=== PATIENT | female | born 1990 | race Caucasian/White ===

== ENCOUNTER 2023-08-04 15:05 | Emergency (ER) | payer OTHER, SELFPAY ==
--- NOTE | 2023-08-04 15:08 | ED_ITS ---
HPI - General Adult General Chief complaint: Back Pain/Injury Stated complaint: back pain Time Seen by Provider: 08/04/23 15:14 Source: patient Mode of arrival: ambulatory Limitations: no limitations History of Present Illness HPI narrative: 32yo female with history of Von Willebrands disease, T12 compression fracture (1 yr ago secondary to trauma treated with brace) here with complaints of lower back pain with radiation down the right leg since Friday with no known injury or trauma. Describes pain as burning. No numbness,tingling in the legs. NO numbness in the groin. No bowel or bladder incontinence. No fevers/chills. Unrelieved with Tylenol, heat at home Related Data Previous Rx's Medication Instructions Recorded cyclobenzaprine 10 mg tablet 10 mg PO TID PRN muscle spasm #15 08/04/23 tabs lidocaine 5 % topical patch 1 patch topical DAILY #15 ea 08/04/23 (Lidoderm) oxycodone 5 mg tablet 5 mg PO Q8H PRN pain #9 tabs 08/04/23 Allergies Allergy/AdvReac Type Severity Reaction Status Date / Time NSAIDS (Non-Steroidal AdvReac Unknown Verified 08/04/23 15:08 Anti-Inflamma Review of Systems Review of Systems: Yes all other systems are reviewed and are negative Constitutional: Constitutional: Reports no additional constitutional complaints, Denies body ache(s), Denies chills, Denies fever(s), Denies headache(s) and Denies weakness Eyes: Eyes: Reports no additional eye complaints and Denies change in vision ENT: Reports system reviewed and no additional complaints, except as documented, Denies dizziness, Denies headache(s), Denies nasal congestion, Denies nasal discharge and Denies neck pain Cardiovascular: Cardiovascular: Reports no additional cardiovascular complaints, Denies chest pain, Denies leg edema and Denies dyspnea Respiratory: Respiratory: Reports no additional respiratory complaints, Denies cough and Denies dyspnea Gastrointestinal: Gastrointestinal: Reports no additional gastrointestinal complaints, Denies abdominal pain, Denies diarrhea, Denies nausea and Denies vomiting Genitourinary: Genitourinary: Reports no additional female genitourinary complaints and Denies urinary incontinence Musculoskeletal: Musculoskeletal: Reports no additional musculoskeletal complaints, Reports back pain, Denies arthralgias, Denies joint swelling, Denies neck pain, Denies numbness, Reports radiating pain into limb and Denies tingling Integumentary/Breasts: Skin/Breast: Reports system reviewed and no additional complaints, except as docu and Denies rash Neurologic: Reports system reviewed and no additional complaints, except as documented, Denies Abnormal speech present, Denies dizziness, Denies headache(s), Denies numbness, Denies tingling and Denies weakness PMF Past Medical History Attestation statement: The following information was validated with the patient. Source: old records reviewed and nursing notes reviewed Social History Social History Advance Directives: No Advance Directives Information Provided: No Physical Exam ED Vital Signs: Vital Signs - 24 hr 08/04/23 15:09 Temperature 98.3 F Pulse Rate 100 Respiratory Rate 18 Blood Pressure 150/101 H BMI result Body Mass Index 21.1 Const General: cooperative, healthy appearing, comfortable and no acute distress Orientation/consciousness: patient oriented x3 Limitations: no limitations HENMT Head: Yes normal to inspection Ears: hearing grossly normal bilaterally General nose exam: Normal external nose present Face and sinus: Yes normal facial exam Mouth: Normal oral and palatal mucosa present Throat: Yes posterior oropharynx normal Eyes General: appearance normal, both eyes and all related structures Pupils: Equal, round and reactive pupils present Neck Neck: Yes normal visual inspection Chest Chest palpation & inspection: normal inspection of the chest Resp Effort & Inspection: normal respiratory effort Auscultation: clear to auscultation bilaterally Cardio Rate: regular rate Rhythm: regular rhythm Peripheral pulses: Peripheral pulses 2+ throughout GI Inspection: Yes normal to inspection Palpation (GI): Soft to palpation and nontender Auscultation: normal bowel sounds General: Yes no CVA tenderness Back/Spine/Pelvis Other: TTP to lumbar mid/lower spine with no step offs or deformities Worsened with b/l leg raise Back: no CVA tenderness Thoracic/Lumbar Spine: thoracic and lumbar spine normal to inspection Skin General skin exam: no rashes or lesions noted Neuro General: patient oriented x3, moves all extremities, no focal motor deficits and normal sensation to monofilament Cranial nerves: Yes Equal, round and reactive pupils present Cognition (Neuro): normal cognition Speech: No Abnormal speech present Motor exam (neuro): 5/5 motor strength present throughout Sensory Exam: Normal double simultaneous stimulation for sensation Deep tendon reflexes (DTR's): Right patellar reflex intensity grade: 2+ and Left patellar reflex intensity grade: 2+ Extrem General: Yes normal to inspection Course Course Course Narrative: RME performed by Cristy Peguero PA-C. Patient is a 32 year old assigned female at presenting to the emergency department with low back pain. Patient placed back in the waiting room pending room availability. Reevaluation(s) Reevaluation #1: 1700-continued pain. Re-medicated for pain Reevaluation #2: 1800-Pain is not resolved but improved. Patient feels comfortable being discharged home with oral medications. recommended she f/u outpatient with PCP for MRI. Reviewed worrisome signs/symptoms with patient and when to seek additional care. Comfortable with plan for discharge home. Medications Administered Discontinued Medications Generic Name Dose Route Start Last Admin Trade Name Freq PRN Reason Stop Dose Admin Acetaminophen 975 mg 08/04/23 15:26 08/04/23 15:45 Acetaminophen 325 Mg Tablet PO 08/04/23 15:27 Not Given ONCE ONE Cyclobenzaprine HCl 10 mg 08/04/23 15:26 08/04/23 15:37 Cyclobenzaprine Hcl 10 Mg Tablet PO 08/04/23 15:27 10 mg ONCE ONE Administration Lidocaine 1 patch 08/04/23 15:26 08/04/23 15:38 Lidocaine 4 % Patch Adh..Patch TRANSDERMA 08/04/23 15:27 1 patch ONCE ONE Administration Protocol Oxycodone HCl 5 mg 08/04/23 15:26 08/04/23 15:37 Oxycodone Hcl Immed Release 5 Mg Tablet PO 08/04/23 15:27 5 mg ONCE ONE Administration Oxycodone HCl 5 mg 08/04/23 16:43 08/04/23 17:10 Oxycodone Hcl Immed Release 5 Mg Tablet PO 08/04/23 16:44 5 mg ONCE ONE Administration Medical Decision Making Medical Decision Making MDM Narrative: 32yo female with history of Von Willebrands disease, T12 compression fracture (1 yr ago secondary to trauma treated with brace) here with complaints of lower back pain with radiation down the right leg since Friday with no known injury or trauma. Describes pain as burning. No numbness,tingling in the legs. NO numbness in the groin. No bowel or bladder incontinence. No fevers/chills. Unrelieved with Tylenol, heat at home Normal neuro exam with no red flag symptoms or neuro deficits. +PAIN on exam and limited ambulation d/t pain Will provide analgesia and re-assess Differential Diagnosis Differential Diagnoses: The differential diagnosis associated with the p resentation includes lumbar radiculopathy, herniated disc Low concern for fracture or bony abnormality with no reports of recent trauma or injury Low concern for cord compression cauda equine a with normal neuro exam with no focal deficits Low concern for epidural abscess with no history of immunocompromised state or IV drug abuse with normal neuro exam Low concern for AAA with gradual onset of symptoms Low concern for renal colic/pyelo with no urinary symptoms Admission/Observation Consideration of admission/observation: Escalation of care including admission/observation considered No neurological deficits or red flag symptoms to suggest need for emergent MRI, NSY consultation or transfer to tertiary care center Tests considered The following testing was considered but not selected: No neurological deficits or red flag symptoms to suggest need for emergent MRI Prescription Management I considered prescription management with: Pain Medication Discharge Plan Discharge Clinical Impression: Lumbar radiculopathy Patient Disposition: Home, Self-Care Instructions: Lumbar Radiculopathy (ED) Additional Instructions: Heat to the area gentle stretching no heavy lifting or bending Call PCP to schedule outpatient MRI. Return for incontinence of urine/stool, fever, numbness in the groin, weakness in the extremities Continue Tylenol Prescriptions: New cyclobenzaprine 10 mg tablet 10 mg PO TID PRN (Reason: muscle spasm) Qty: 15 0RF lidocaine [Lidoderm] 5 % adhesive patch,medicated 1 patch topical DAILY Qty: 15 0RF Rx Instructions: leave on most painful area for up to 12 hrs oxycodone 5 mg tablet 5 mg PO Q8H PRN (Reason: pain) Qty: 9 0RF Rx Instructions: Partial Fill upon patient request. Referrals: Physician,Unknown J [Primary Care Provider] - 5 days Stand Alone Forms: Work/School Release
[2023-08-04 15:09] VITALS: BP 150/101; PULSE 100; RESP 18; TEMP 36.8; BMI 21.1
[2023-08-04] MEDS: oxyCODONE HCl Immed Release 5 MG TABLET PO ×2 (15:37→17:10)
[2023-08-04] MEDS: Cyclobenzaprine HCl 10 MG TABLET PO (15:37)
[2023-08-04] MEDS: Lidocaine 4 % Patch ADH..PATCH 1 PATCH TRANSDERMA (15:38)
--- NOTE | 2023-08-04 15:40 | PC.NURSE ---
pt medicated per MAR
== END 2023-08-04 18:44 | disposition home or self-care (01) ==
PROVIDERS: Emergency Provider Emergency Medicine Emergency Medical Services
DX: M54.16 Radiculopathy, lumbar region (principal); M54.50 Low back pain, unspecified; D68.00 Von Willebrand disease, unspecified
CPT/HCPCS: 99283

== ENCOUNTER 2023-08-07 20:46 | Emergency (ER) | payer OTHER, SELFPAY ==
--- NOTE | ~2023-08-07 | CT_ITS ---
EXAMINATION: CT LUMBAR SPINE WITHOUT CONTRAST CLINICAL INFORMATION: Low back pain radiating in the right leg COMPARISON: None available. TECHNIQUE: Axial thin section CT slices were obtained through the the lumbar spine. Sagittal and coronal reconstructions were also produced and reviewed. This CT examination was performed using dose optimization techniques as appropriate, variously including the following: *Automated exposure control *Adjustment of mA and/or kV according to patient size (this includes techniques or standardized protocols for targeted exams where dose is matched to indication/reason for exam; i.e. extremities or head) *Use of iterative reconstruction technique DLP; 377 mGy-cm FINDINGS: LUMBAR SPINE: Representative [employer]: There is mild dextroscoliosis of lumbar spine and straightening of lumbar lordosis. There is compression deformity of T12 vertebral body. There is compression deformity of superior endplate of T12 vertebral body with approximately 50% loss of height of T12 vertebral body. The vertebral bodies are normal in contour and alignment. No gross lytic or blastic lesions are identified. No fractures or subluxations are identified. No gross epidural hematoma is seen. The intervertebral discs are generally normal in height. No gross disc protrusions are noted. The central canal is patent. T12-L1: There is no significant disc bulge or protrusion. The facet joints are normal. There is no central canal, lateral recess, or neural foraminal stenosis. L1-L2: There is no significant disc bulge or protrusion. The facet joints are normal. There is no central canal, lateral recess, or neural foraminal stenosis. L2-L3: There is no significant disc bulge or protrusion. The facet joints are normal. There is no central canal, lateral recess, or neural foraminal stenosis. L3-L4: There is no significant disc bulge or protrusion. The facet joints are normal. There is no central canal, lateral recess, or neural foraminal stenosis. L4-L5: There is no significant disc bulge or protrusion. The facet joints are normal. There is no central canal, lateral recess, or neural foraminal stenosis. L5-S1:There is no significant disc bulge or protrusion. The facet joints are normal. There is no central canal, lateral recess, or neural foraminal stenosis. The paraspinal soft tissues are unremarkable. CT/CT lumbar spine wo IV con IMPRESSION: 1. Compression deformity of T12 vertebral body, of uncertain chronicity. 2. Mild dextroscoliosis of lumbar spine and straightening of lumbar lordosis.
[2023-08-07 21:13] VITALS: BP 138/99; PULSE 116; RESP 20; TEMP 37; O2SAT 98; BMI 21.1
[2023-08-08 02:47] VITALS: BP 134/98; PULSE 89; RESP 16; O2SAT 98
[2023-08-08 05:16] VITALS: BP 149/107; PULSE 93; RESP 16; TEMP 36.6; O2SAT 98
--- NOTE | 2023-08-08 06:09 | PC.NURSE ---
Pt sitting at edge of stretcher unable to get comfortable. Reports pain to lower back radiating to right leg worsens with movement. Pt unable to right leg up. Pt waiting for provider, Pt aware of plan.
--- NOTE | 2023-08-08 06:45 | ED.BACK ---
HPI - Back Pain/Injury General Chief Complaint: Back Pain/Injury Stated Complaint: lower back pain Time Seen by Provider: 08/08/23 06:24 Source: patient Mode of arrival: ambulatory Limitations: no limitations History of Present Illness HPI Narrative: 32yo female with history of Von Willebrands disease, T12 compression fracture (1 yr ago secondary to trauma treated with brace) here with complaints of lower back pain with radiation down the right leg since 07/30/2023 with no known injury or trauma. 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 She states that last Friday her pain started in the morning. The pain came on gradually. She states that the pain is located across her lower back and she describes as a shooting/stabbing pain which is 6/10 at rest and 9/10 with movement. She states that the pain radiates down her right leg in her right leg with a tingling/numbness sensation. The patient denied fever, chills, nausea, vomiting, diarrhea, frequency, urgency, dysuria. She has not lost control of her bowel or bladder. She was seen in the emergency department on 08/04/2023, 4 days prior to evaluation. She was diagnosed with lumbar radiculopathy and started on cyclobenzaprine, lidocaine patches and oxycodone. She states she has taken the cyclobenzaprine with some improvement but is not taken the oxycodone. Related Data Previous Rx's Medication Instructions Recorded cyclobenzaprine 10 mg tablet 10 mg PO TID PRN muscle spasm #15 08/04/23 tabs lidocaine 5 % topical patch 1 patch topical DAILY #15 ea 08/04/23 (Lidoderm) oxycodone 5 mg tablet 5 mg PO Q8H PRN pain #9 tabs 08/04/23 morphine 15 mg immediate release 15 mg PO Q6H PRN pain #14 tabs 08/08/23 tablet prednisone 20 mg tablet 60 mg (3 x 20 mg) PO DAILY 7 days 08/08/23 #21 tabs Allergies Allergy/AdvReac Type Severity Reaction Status Date / Time NSAIDS (Non-Steroidal AdvReac Unknown Verified 08/07/23 21:18 Anti-Inflamma Review of Systems Review of Systems: Yes all other systems are reviewed and are negative [facility] Past Medical History [facility] Narrative: Past medical history: Von Willebrand's disease, T12 fracture secondary to fall 1 year prior. 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 Social History Social History Alcohol intake: current Smoked in Last 30 Days: No Use of substances other than those prescribed or required for medical reasons: No Advance Directives: No Advance Directives Information Provided: Yes Patient : No Physical Exam Vital Signs: Vital Signs: Last Vital Signs Temp 97.9 F 08/08/23 05:16 Pulse 93 08/08/23 05:16 Resp 18 08/08/23 07:10 BP 149/107 H 08/08/23 05:16 Pulse Ox 98 08/08/23 05:16 O2 Del Method Room Air 08/08/23 05:16 BMI result Body Mass Index 21.1 Medications Administered Discontinued Medications Generic Name Dose Route Start Last Admin Trade Name Freq PRN Reason Stop Dose Admin Sodium Chloride 1,000 mls @ 999 mls/hr 08/08/23 06:45 08/08/23 08:37 Ns IV 08/08/23 07:45 Infused .Q1H1M STA Infusion Ketorolac Tromethamine 15 mg 08/08/23 06:45 08/08/23 07:07 Ketorolac Tromethamine 15 Mg/Ml Vial IVPUSH 08/08/23 06:46 15 mg ONCE STA Administration Morphine Sulfate 4 mg 08/08/23 06:45 08/08/23 07:10 Morphine Sulfate 4 Mg/Ml Cartridge IVPUSH 08/08/23 06:46 4 mg ONCE STA Administration Protocol Ondansetron HCl 4 mg 08/08/23 06:45 08/08/23 07:05 Ondansetron Hcl 4 Mg/2 Ml Vial IVPUSH 08/08/23 06:46 4 mg ONCE ONE Administration Medical Decision Making Medical Decision Making [facility] Narrative: 32-year-old female with history of von Willebrand's disease and T12 fracture 1 year prior secondary to fall who presents emergency department for evaluation of 9 days of lower back pain with pain radiating down her right leg who was seen in the emergency department on 08/04/2023 who had some improvement with cyclobenzaprine but now her pain is worse. Patient's lower back pain is 6/10 at rest and 9/10 with movement with pain radiating down her right leg then numb sensation in her right leg. Patient states that she is having difficulty walking secondary to her pain. She denied fever or chills, loss of bowel or bladder control. Patient's exam did reveal tenderness palpation over the L4-L5 vertebrae and lumbar sacral area. She has positive bilateral straight leg raise right being greater than left. There is no diminished light touch in her lower extremities, she has normal reflexes. Patient's strength is diminished on the right compared to left that this may be secondary to pain. Following evaluation was ordered: CBC, CMP, ESR, CRP, PT/INR, PTT, CPK, quantitative beta-hCG, urinalysis, CT lumbar spine without contrast Patient was treated with morphine 4 mg IV, Zofran 4 mg IV, Toradol 15 mg IV and normal saline x1 L 0837: Patient's laboratory evaluation was unremarkable with normal ESR and CRP. Quantitative test was negative. MRIs not obtainable at this time therefore I ordered a CT scan of the lumbar spine to evaluate for compression fractures versus disc disease At the end of my shift, patient's care was turned over to my colleague, Dr. Tori Fernandez Differential Diagnosis Differential Diagnoses: The differential diagnosis associated with the presentation includes Differential diagnosis includes but is not limited to musculoskeletal injury, sciatica, disc disease, infectious process Admission/Observation Consideration of admission/observation: Escalation of care including admission/observation considered Lab Data MDM Lab Attestation statement: I reviewed the patient's lab results. My independent interpretation patient's laboratory evaluation is as follows: CBC and CMP were normal. Quantitative beta hCG was below detectable limits-she is not . Patient's ESR and CRP were normal. 08/08/23 06:58 08/08/23 06:58 Labs: Lab Results 08/08/23 Range/Units 06:58 WBC 5.5 (4.8-10.8) X10*3/uL RBC 3.86 L (4.20-5.50) X10*6/uL Hgb 12.8 (12.0-16.0) g/dl Hct 36.9 L (37.0-47.0) % MCV 95.6 (80.0-98.0) fL MCH 33.2 H (27.0-33.0) pg MCHC 34.7 (31.0-35.0) g/dl RDW 11.8 (11.0-16.0) % Plt Count 215 (160-400) X10*3/uL MPV 9.4 (9.4-12.3) fL Immature Gran % (Auto) 0.2 (0.0-0.4) % Neut % (Auto) 62.1 (45-73) % Lymph % (Auto) 23.4 (20-40) % [place] % (Auto) 10.6 (2-11) % Eos % (Auto) 2.6 (0-4) % Baso % (Auto) 1.1 (0-2) % Lymph # (Auto) 1.3 (1.2-4.9) X10*3/uL [place] # (Auto) 0.6 (0.1-1.2) X10*3/uL Eos # (Auto) 0.1 (0.0-0.4) X10*3/uL Baso # (Auto) 0.1 (0.0-0.2) X10*3/uL Abs Immat Gran (auto) 0.01 (0.00-0.03) X10*3/uL Absolute Neuts (auto) 3.4 (2.0-8.3) x10*3/uL Absolute Nucleated RBC 0.000 (0.0-0.012) X10*3/uL Nucleated RBC % (auto) 0.0 (0.0-0.2) /100WBC ESR 7 (0-20) MM/HR PT 11.0 L (11.1-13.3) SEC INR 0.9 (0.9-1.1) APTT 27.3 (26.0-36.4) SEC Sodium 139 (135-145) mmol/L Potassium 4.0 (3.3-5.1) mmol/L Chloride 108 (96-108) mmol/L Carbon Dioxide 22 (22-29) mmol/L Anion Gap 13 (12-20) BUN 10 (9-16) mg/dL Creatinine 0.69 (0.5-1.4) mg/dL Estim Creat Clear Calc 115.2 Estimated GFR > 60 Random Glucose 86 (60-115) mg/dL Calcium 9.3 (8.4-10.2) mg/dL Total Bilirubin 0.4 (0.0-1.0) mg/dL AST 15 (5-31) U/L ALT 6 (0-31) U/L Alkaline Phosphatase 41 (39-117) U/L Total Creatine Kinase 65 (26-140) U/L C-Reactive Protein 0.23 (< or = 0.50) mg/dL Total Protein 7.4 (6.5-8.0) g/dL Albumin 4.0 (3.5-5.0) g/dL Beta HCG, Quant < 2 mIU/mL Discharge Plan Discharge Clinical Impression: Lumbar back pain with radiculopathy affecting right lower extremity Patient Disposition: Still a Patient Instructions: Lumbar Radiculopathy (ED) Additional Instructions: Your blood work was normal. The CT scan results were given to you by Dr. Fernandez Take prednisone 20 mg pills, 3 pills once a day for 7 days. While you are taking prednisone, do not take any NSAIDs (Motrin, Advil, ibuprofen, Aleve, naproxen). Take Tylenol (acetaminophen) 2 pills every 6 hours as needed for pain. For pain not relieved by prednisone or Tylenol take morphine 15 mg pills, 1 pill every 6 hours as needed for pain. This medication will make you sleepy, do not drive or work while taking this medication. Morphine is a narcotic medication and can be addicting. If you are concerned about addiction you can ask the pharmacist for less pills or do not get this prescription filled. Continue taking cyclobenzaprine as prescribed. Follow-up with your doctor in 2 days. Please return to the emergency department if your symptoms get worse or if you develop any symptoms that are concerning to you. Please see the work note Prescriptions: New prednisone 20 mg tablet 60 mg PO DAILY 7 Days Qty: 21 0RF morphine 15 mg tablet 15 mg PO Q6H PRN (Reason: pain) Qty: 14 0RF Rx Instructions: Patient may request partial fill; Partial Fill upon patient request. No Action cyclobenzaprine 10 mg tablet 10 mg PO TID PRN (Reason: muscle spasm) Qty: 15 0RF lidocaine [Lidoderm] 5 % adhesive patch,medicated 1 patch topical DAILY Qty: 15 0RF Rx Instructions: leave on most painful area for up to 12 hrs oxycodone 5 mg tablet 5 mg PO Q8H PRN (Reason: pain) Qty: 9 0RF Rx Instructions: Partial Fill upon patient request. Stand Alone Forms: Work/School Release
[2023-08-08] MEDS: ondansetron HCL 4 MG/2 ML VIAL IVPUSH (07:05)
[2023-08-08 07:06] LABS: MANUAL DIFF FLAG NO
[2023-08-08 07:07] LABS: Basophils Absolute Auto 0.1 X10*3/uL (0.0-0.2); Basophils Percent Auto 1.1 % (0-2); Eosinophils Absolute Auto 0.1 X10*3/uL (0.0-0.4); Eosinophils Percent Auto 2.6 % (0-4); Hematocrit 36.9 % (37.0-47.0); Hemoglobin 12.8 g/dl (12.0-16.0); Imm Gran Abs Auto 0.01 X10*3/uL (0.00-0.03); Imm Gran Pct Auto 0.2 % (0.0-0.4); Lymphocytes Absolute Auto 1.3 X10*3/uL (1.2-4.9); Lymphocytes Percent Auto 23.4 % (20-40); Mean Corpuscular HGB Conc 34.7 g/dl (31.0-35.0); Mean Corpuscular Hemoglobin 33.2 pg (27.0-33.0); Mean Corpuscular Volume 95.6 fL (80.0-98.0); Mean Platelet Volume 9.4 fL (9.4-12.3); Monocytes Absolute Auto 0.6 X10*3/uL (0.1-1.2); Monocytes Percent Auto 10.6 % (2-11); Neutrophils Absolute Auto 3.4 x10*3/uL (2.0-8.3); Neutrophils Percent Auto 62.1 % (45-73); Platelet Count 215 X10*3/uL (160-400); Red Blood Count 3.86 X10*6/uL (4.20-5.50); Red Cell Distribution Width 11.8 % (11.0-16.0); White Blood Count 5.5 X10*3/uL (4.8-10.8)
[2023-08-08] MEDS: Ketorolac Tromethamine 15 MG/ML VIAL IVPUSH (07:07)
[2023-08-08 07:10] VITALS: RESP 18
[2023-08-08] MEDS: Morphine Sulfate 4 MG/ML CARTRIDGE IVPUSH (07:10)
[2023-08-08 07:13] LABS: INTERNATIONAL NORM RATIO 0.9 (0.9-1.1)
[2023-08-08] MEDS: 0.9 % Sodium Chloride 1,000 ML 999 ML IV (07:13)
[2023-08-08 07:16] LABS: Partial Thromboplastin Time 27.3 SEC (26.0-36.4)
[2023-08-08 07:35] LABS: Alanine Aminotransferase 6 U/L (0-31); Alkaline Phosphatase 41 U/L (39-117); Anion Gap 13 (12-20); Aspartate Amino Transferase 15 U/L (5-31); Bilirubin Total 0.4 mg/dL (0.0-1.0); Blood Urea Nitrogen 10 mg/dL (9-16); C Reactive Protein 0.23 mg/dL (< or = 0.50); Calcium 9.3 mg/dL (8.4-10.2); Carbon Dioxide 22 mmol/L (22-29); Chloride 108 mmol/L (96-108); Creatinine Clr Calc Pharmacy 115.2; Estimated Glomerular Filt Rate > 60; Glucose Random 86 mg/dL (60-115); HCG Quantitative < 2 mIU/mL; Sodium 139 mmol/L (135-145); Total Protein 7.4 g/dL (6.5-8.0)
[2023-08-08 07:43] LABS: Erythrocyte Sedimentation Rate 7 MM/HR (0-20)
[2023-08-08 10:15] VITALS: BP 133/89; PULSE 86; RESP 18; O2SAT 99
== END 2023-08-08 10:16 | disposition home or self-care (01) ==
PROVIDERS: Emergency Medicine Emergency Medical Services; Emergency Provider Emergency Medicine
DX: M54.16 Radiculopathy, lumbar region (principal); M54.50 Low back pain, unspecified; M79.604 Pain in right leg; Z79.899 Other long term (current) drug therapy
CPT/HCPCS: 36415; 72131; 80053; 82550; 84702; 85025; 85610; 85652; 85730; 86140; 96361; 96374; 96375; 99284; 99285; J1885; J2270; J2405

== ENCOUNTER 2024-10-08 07:21 | Inpatient (IN) | payer OTHER, SELFPAY ==
--- NOTE | ~2024-10-08 | CT_ITS ---
EXAMINATION: CT ABDOMEN AND PELVIS WITH CONTRAST CLINICAL INFORMATION: Upper abdominal pain. Diarrhea. COMPARISON: None available. TECHNIQUE: Multidetector volumetric images were obtained from the superior aspect of the liver through the pubic symphysis following administration 85 mL of Omnipaque 350 intravenous contrast. Sagittal and coronal reformatted images were obtained on the technologist's workstation. Oral contrast: No This CT examination was performed using dose optimization techniques as appropriate, variously including the following: *Automated exposure control *Adjustment of mA and/or kV according to patient size (this includes techniques or standardized protocols for targeted exams where dose is matched to indication/reason for exam; i.e. extremities or head) *Use of iterative reconstruction technique. DLP: 447 mGy centimeters. FINDINGS: LUNG BASES: No acute airspace disease in the included lungs. LIVER, GALLBLADDER, AND BILIARY TREE: Liver measures 15 cm. No focal mass. The portal veins, hepatic veins and intrahepatic portion of the IVC are patent. Fluid-filled gallbladder without pericholecystic fluid collection or gallbladder wall thickening. Common bile duct measures 4 mm. No intrahepatic biliary ductal dilatation. PANCREAS: No focal mass. No peripancreatic fluid collections. No main pancreatic ductal dilatation. SPLEEN: 10 cm. No focal mass. Small accessory spleen. ADRENAL GLANDS: No nodular lesions. KIDNEYS AND URETERS: No hydronephrosis. No gross nephrolithiasis. No gross renal mass. Normal enhancement pattern of the renal parenchyma. BLADDER: Fluid-filled. GASTROINTESTINAL TRACT: Fluid throughout the large intestine without overt wall thickening or pericolonic edema pattern. No intestinal obstruction pattern. There are few scattered fluid-filled prominent small bowel loops in the proximal jejunal distal ileal loops. Appendix is normal. Segmental areas of collapse small bowel loops. ABDOMINAL WALL: Small tiny fat-containing umbilical hernia. Metallic umbilical piercing. LYMPH NODES: No lymphadenopathy. VASCULAR: No aneurysm or dissection, abdominal aorta. PELVIC VISCERA: There is a radiopaque ring at the region of the uterine cervix/distal vagina likely contraceptive diaphragm device. OSSEOUS STRUCTURES: There is a partially sclerotic superior endplate compression deformity resulting in 30% volume loss and 4 mm retropulsion upon central canal at T12 vertebral body. S-shaped curvature of the thoracolumbar spine. Multilevel thoracolumbar spondylosis more conspicuous at L5-S1 resulting in central spinal canal stenosis with questionable disc herniation. There is fatty atrophy of the lower lumbar muscles at L5-S1 level. CT/CT abdomen pelvis w IV con IMPRESSION: Acute inflammatory bowel disease/enterocolitis should be considered in the correct clinical settings. Crohn's disease cannot be excluded. Subacute fracture resulting in 30% volume loss at T12 vertebra. Discussed with the emergency physician Dr. Tori Fernandez at 2:12 PM Fleischner guidelines were followed. Electronically signed by: Henrik Rosales MD 10/08/2024 02:23 PM [facility]OS
[2024-10-08 07:22] VITALS: BP 124/87; PULSE 129; RESP 18; TEMP 36.6; O2SAT 100; BMI 21.3
--- NOTE | 2024-10-08 07:28 | ECG_ITS ---
Test Reason : TACHY Blood Pressure : */* mmHG Vent. Rate : 111 BPM Atrial Rate : 111 BPM P-R Int : 150 ms QRS Dur : 62 ms QT Int : 342 ms P-R-T Axes : 78 27 20 degrees QTcB Int : 465 ms Sinus tachycardia Left atrial enlargement Septal infarct , age undetermined Abnormal ECG No previous ECGs available Referred By: Generic ED Physician Electronically Signed By: CHRISTIANO SHELDON MD
[2024-10-08 08:32] LABS: Hematocrit 41.4 % (37.0-47.0); Hemoglobin 14.6 g/dl (12.0-16.0); Mean Corpuscular HGB Conc 35.3 g/dl (31.0-35.0); Mean Corpuscular Hemoglobin 31.8 pg (27.0-33.0); Mean Corpuscular Volume 90.2 fL (80.0-98.0); Mean Platelet Volume 9.6 fL (9.4-12.3); Platelet Count 268 X10*3/uL (160-400); Red Blood Count 4.59 X10*6/uL (4.20-5.50); Red Cell Distribution Width 11.7 % (11.0-16.0); White Blood Count 11.3 X10*3/uL (4.8-10.8)
[2024-10-08 08:41] LABS: Alanine Aminotransferase 9 U/L (0-31); Alkaline Phosphatase 51 U/L (39-117); Anion Gap 14 (12-20); Aspartate Amino Transferase 16 U/L (5-31); Bilirubin Direct 0.1 mg/dL (0.0-0.5); Bilirubin Total 0.3 mg/dL (0.0-1.0); Blood Urea Nitrogen 9 mg/dL (9-16); Calcium 8.7 mg/dL (8.4-10.2); Carbon Dioxide 18 mmol/L (22-29); Chloride 114 mmol/L (96-108); Creatinine Clr Calc Pharmacy 125.8; Estimated Glomerular Filt Rate > 60; Glucose Random 120 mg/dL (60-115); Lipase 31 U/L (8-78); Potassium 3.4 mmol/L (3.3-5.1); Sodium 143 mmol/L (135-145); Total Protein 7.5 g/dL (6.5-8.0)
[2024-10-08 09:01] LABS: SLIDE REVIEW MANUAL DIFF
[2024-10-08 09:06] LABS: Band Neutrophils Percent 8 % (3-5); Lymphocytes Absolute Manual 0.9 X10*3/uL (1.2-4.9); Lymphocytes Percent Manual 8 % (20-40); Metamyelocytes Absolute 0.1 X10*3/uL; Metamyelocytes Percent 1 %; Monocytes Absolute Manual 0.1 X10*3/uL (0.1-1.2); Monocytes Percent Manual 1 % (2-11); Neutrophils Absolute Manual 10.2 X10*3/uL (2.0-8.3); Neutrophils Percent Manual 82 % (45-73)
[2024-10-08 09:07] LABS: Influenza A PCR NEGATIVE (Negative); Influenza B PCR NEGATIVE (Negative); Platelet Estimate NORMAL (NORMAL); Platelet Morphology Comment NORMAL; RBC Morphology NORMAL; Resp Syncy Virus RNA Qual PCR NEGATIVE (Negative); SARS COV2 PCR INHOUSE NEGATIVE (Negative)
[2024-10-08 09:12] VITALS: BP 118/76; PULSE 110; RESP 20; O2SAT 100
[2024-10-08] MEDS: Ondansetron ODT 4 MG TAB.RAPDIS TRANSLINGU (09:16)
--- NOTE | 2024-10-08 10:45 | ED_ITS ---
HPI - Abdominal Pain General Chief Complaint: Abdominal Pain Stated Complaint: abd pain Time Seen by Provider: 10/08/24 11:08 Source: patient Mode of arrival: ambulatory Limitations: no limitations History of Present Illness ED Provider: Cristy Peguero PA-C HPI narrative: Patient is a 33 year old assigned female at with a history of T12 fx presenting to the emergency department today with abdominal pain, nausea, vomiting, and dizziness. Patient states that since this morning she has had upper abdominal pain, nausea, vomiting, and dizziness. Patient denies any lightheadedness, fever, chills, blurry vision, double vision, loss of vision, chest pain, difficulty breathing, shortness of breath, back pain, night sweats, pain with urination, increased urinary frequency, increased urinary urgency, blood in her urine or stool, syncope or a near syncopal episode, recent trauma or falls, bowel incontinence, bladder incontinence, or any other complaints at this time. MD elicited complaint: abdominal pain Exacerbating factors: nothing Relieving factors: nothing Associated symptoms: nausea and vomiting Related Data Home Medications ?Medication ?Instructions ?Recorded ?Confirmed cetirizine 10 mg tablet (Zyrtec) 10 mg PO DAILY 10/08/24 10/08/24 etonogestrel 0.12 mg-ethinyl 1 vag ring vaginal Q3W 10/08/24 10/08/24 estradiol 0.015 mg/24 hr vaginal ring Previous Rx's ?Medication ?Instructions ?Recorded cyclobenzaprine 10 mg tablet 10 mg PO TID PRN muscle spasm #15 08/04/23 tabs Allergies Allergy/AdvReac Type Severity Reaction Status Date / Time NSAIDS (Non-Steroidal AdvReac Unknown Verified 10/08/24 07:28 Anti-Inflamma Review of Systems Constitutional: Reports no additional constitutional complaints, Denies chills, Denies fever(s) and Denies night sweats Eyes: Reports no additional eye complaints, Denies blurry vision, Denies change in vision, Denies diplopia, Denies eye discharge, Denies loss of vision and Denies eye pain Denies dizziness Cardiovascular: Reports no additional cardiovascular complaints, Denies chest pain, Denies lightheadedness, Denies Loss of Consciousness and Denies dyspnea Respiratory: Reports no additional respiratory complaints and Denies dyspnea Gastrointestinal: Reports no additional gastrointestinal complaints, Reports abdominal pain, Denies melena, Denies hematochezia, Denies change in bowel habits, Denies change in stool character, Reports nausea and Reports vomiting Genitourinary: Denies hematuria, Denies urinary frequency, Denies dysuria, Denies urinary incontinence, Denies urinary hesitancy and Denies urinary urgency Musculoskeletal: Reports no additional musculoskeletal complaints, Denies numbness and Denies tingling Denies dizziness, Denies loss of vision, Denies numbness and Denies tingling Psychiatric: Reports no additional psychiatric complaints Endocrine: Reports no additional endocrine complaints Hematologic/Lymphatic: Reports no additional hematologic/lymphatic complaints Allergic/Immunologic: Reports no additional allergic/immunologic complaints [facility] Past Medical History Attestation statement: The following information was validated with the patient. Source: old records reviewed and nursing notes reviewed Social History Social History Alcohol intake: current Smoked in Last 30 Days: No Advance Directives: No Advance Directives Information Provided: No Patient : No Physical Exam ED Vital Signs: Vital Signs - 24 hr 10/08/24 07:22 10/08/24 09:12 10/08/24 11:31 Temperature 97.8 F 98.1 F Pulse Rate 129 H 110 H 116 H Respiratory Rate 18 20 15 Blood Pressure 124/87 118/76 120/76 Pulse Oximetry 100 100 100 Oxygen Delivery Method Room Air Room Air Room Air 10/08/24 13:12 10/08/24 14:00 Temperature 98 F Pulse Rate 107 H 111 H Respiratory Rate 18 15 Blood Pressure 145/95 H 120/84 Pulse Oximetry 100 99 Oxygen Delivery Method Room Air Room Air BMI result Body Mass Index 21.3 Const General: cooperative, no acute distress, alert and awake Nutritional Appearance: well nourished Orientation/consciousness: patient oriented x3 Limitations: no limitations HENMT Head: Yes normal to inspection and Yes atraumatic Ears: hearing grossly normal bilaterally and external ears normal General nose exam: Normal external nose present, no nasal discharge noted and no epistaxis Face and sinus: Yes normal facial exam, No abrasion and No laceration Mouth: Normal oral and palatal mucosa present, no drooling and no muffled voice Eyes General: appearance normal, both eyes and all related structures Periorbital: periorbital findings normal Eyelids: Yes eyelids normal Conjunctivae: conjunctivae normal Pupils: Equal, round and reactive pupils present EOM: EOMs intact bilaterally Neck Neck: Yes normal visual inspection, Yes full ROM and Yes no lymphadenopathy Chest Chest palpation & inspection: normal inspection of the chest Resp Effort & Inspection: normal respiratory effort and able to speak in complete sentences GI Inspection: Yes normal to inspection Palpation (GI): Soft to palpation, not firm, Tenderness to palpation present (GI) in the epigastrum, no guarding and not rigid Neuro General: patient oriented x3 and moves all extremities Cranial nerves: Yes Equal, round and reactive pupils present Cognition (Neuro): normal cognition Extrem General: Yes normal to inspection, Yes full ROM and Yes capillary refill normal Psych Appearance: grossly normal Mental Status: mental status grossly normal Affect: normal affect Attitude: cooperative Thought process: Normal thought process present Thought content: Normal thought content present Insight: Good insight present (Psych) Course Course Course Narrative: 33 yo female with PMH of von willebrands not on any medications, no prior surgeries here with abrupt onset upper abdominal pain n/v/d starting at 130 had take out pizza for dinner. No travel, abx use, sick contacts. At this time feels very weak and uncomfortable. Will obtain labs, cultures, lactic acid, given her bandemia dose of IV ceftriaxone, CT scan and pain medications. moved to chair out side of triage to start therapy this is a RAPID medical screening exam the rest of the history and physical exam is to be done by the main provider. Medical Decision Making Medical Decision Making [facility] Narrative: Patient is a 33 year old assigned female at with a history of T12 fx presenting to the emergency department today with abdominal pain, nausea, vomiting, and dizziness. Patient's physical exam was as noted in the physical exam portion of this note. Patient's blood work showed WBC count 11.3, 8 bands, initial lactic 2.5 with a repeat after 2 liters of fluid of 2.7. Patient's CT abd/pelvis showed acute inflammatory bowel disease / enterocolitis vs. Crohn's disease and an old T12 fx. I spoke to the hospitalist team who agreed to admission. Patient's clinical presentation is not consistent with sepsis (@1436). I explained my physical exam findings as well as all test results to the patient. I answered all questions asked by the patient. Patient verbalized agreement and understanding with this treatment plan and admission. Differential Diagnosis Differential Diagnoses: The differential diagnosis associated with the presentation includes Gastroenteritis Bacterial colitis Nausea Vomiting Admission/Observation Consideration of admission/observation: Escalation of care including admission/observation considered Admitted. Consult Healthcare Provider Management of the patient was discussed with: Hospitalist (agreed to admission as noted in the MDM Rationale portion of this note.) Lab Data [facility] Lab Attestation statement: I reviewed the patient's lab results. My interpretation of these results are in the MDM Rationale portion of this note. 10/08/24 08:21 10/08/24 08:21 Labs: Lab Results 10/08/24 10/08/24 10/08/24 Range/Units 08:21 11:01 13:23 WBC 11.3 H (4.8-10.8) X10*3/uL RBC 4.59 (4.20-5.50) X10*6/uL Hgb 14.6 (12.0-16.0) g/dl Hct 41.4 (37.0-47.0) % MCV 90.2 (80.0-98.0) fL MCH 31.8 (27.0-33.0) pg MCHC 35.3 H (31.0-35.0) g/dl RDW 11.7 (11.0-16.0) % Plt Count 268 (160-400) X10*3/uL MPV 9.6 (9.4-12.3) fL Immature Gran % (Auto) Cancelled Neut % (Auto) Cancelled Lymph % (Auto) Cancelled [place] % (Auto) Cancelled Eos % (Auto) Cancelled Baso % (Auto) Cancelled Lymph # (Auto) Cancelled [place] # (Auto) Cancelled Eos # (Auto) Cancelled Baso # (Auto) Cancelled Abs Immat Gran (auto) Cancelled Absolute Neuts (auto) Cancelled Absolute Nucleated RBC 0.000 (0.0-0.012) X10*3/uL Nucleated RBC % (auto) 0.0 (0.0-0.2) /100WBC Neutrophils % (Manual) 82 H (45-73) % Band Neutrophils % 8 H (3-5) % Lymphocytes % (Manual) 8 L (20-40) % Monocytes % (Manual) 1 L (2-11) % Metamyelocytes % 1 % Abs Neuts (Manual) 10.2 H (2.0-8.3) X10*3/uL Lymphocytes # (Manual) 0.9 L (1.2-4.9) X10*3/uL Monocytes # (Manual) 0.1 (0.1-1.2) X10*3/uL Metamyelocytes # 0.1 X10*3/uL Platelet Estimate NORMAL (NORMAL) Plt Morphology Comment NORMAL RBC Morphology NORMAL Smear Tech's Comments MANUAL DIFF Sodium 143 (135-145) mmol/L Potassium 3.4 (3.3-5.1) mmol/L Chloride 114 H (96-108) mmol/L Carbon Dioxide 18 L (22-29) mmol/L Anion Gap 14 (12-20) BUN 9 (9-16) mg/dL Creatinine 0.63 (0.5-1.4) mg/dL Estim Creat Clear Calc 125.8 Estimated GFR > 60 Random Glucose 120 H (60-115) mg/dL Lactic Acid 2.5 H* (0.5-2.0) mmol/L Lactic Acid F/U @ 2Hr 2.7 H* (0.5-2.0) mmol/L Calcium 8.7 D (8.4-10.2) mg/dL Total Bilirubin 0.3 (0.0-1.0) mg/dL Direct Bilirubin 0.1 (0.0-0.5) mg/dL AST 16 (5-31) U/L ALT 9 (0-31) U/L Alkaline Phosphatase 51 (39-117) U/L Total Protein 7.5 (6.5-8.0) g/dL Albumin 4.0 (3.5-5.0) g/dL Lipase 31 (8-78) U/L Beta HCG, Quant < 2 mIU/mL Influenza Type A (PCR) NEGATIVE (Negative) Influenza Type B (PCR) NEGATIVE (Negative) RSV RNA Qual (PCR) NEGATIVE (Negative) SARS-CoV-2 RNA (RT-PCR) NEGATIVE (Negative) Independent Interpretation I performed an independent interpretation of an: CT Scan Interpretation: My interpretation is in agreement with the radiologist's impression of this imaging study. L Report Number: [id number]: Total DLP = 447.00 mGy-cm EXAMINATION: CT ABDOMEN AND PELVIS WITH CONTRAST CLINICAL INFORMATION: Upper abdominal pain. Diarrhea. COMPARISON: None available. TECHNIQUE: Multidetector volumetric images were obtained from the superior aspect of the liver through the pubic symphysis following administration 85 mL of Omnipaque 350 intravenous contrast. Sagittal and coronal reformatted images were obtained on the technologist's workstation. Oral contrast: No This CT examination was performed using dose optimization techniques as appropriate, variously including the following: *Automated exposure control *Adjustment of mA and/or kV according to patient size (this includes techniques or standardized protocols for targeted exams where dose is matched to indication/reason for exam; i.e. extremities or head) *Use of iterative reconstruction technique. DLP: 447 mGy centimeters. FINDINGS: LUNG BASES: No acute airspace disease in the included lungs. LIVER, GALLBLADDER, AND BILIARY TREE: Liver measures 15 cm. No focal mass. The portal veins, hepatic veins and intrahepatic portion of the IVC are patent. Fluid-filled gallbladder without pericholecystic fluid collection or gallbladder wall thickening. Common bile duct measures 4 mm. No intrahepatic biliary ductal dilatation. PANCREAS: No focal mass. No peripancreatic fluid collections. No main pancreatic ductal dilatation. SPLEEN: 10 cm. No focal mass. Small accessory spleen. ADRENAL GLANDS: No nodular lesions. KIDNEYS AND URETERS: No hydronephrosis. No gross nephrolithiasis. No gross renal mass. Normal enhancement pattern of the renal parenchyma. BLADDER: Fluid-filled. GASTROINTESTINAL TRACT: Fluid throughout the large intestine without overt wall thickening or pericolonic edema pattern. No intestinal obstruction pattern. There are few scattered fluid-filled prominent small bowel loops in the proximal jejunal distal ileal loops. Appendix is normal. Segmental areas of collapse small bowel loops. ABDOMINAL WALL: Small tiny fat-containing umbilical hernia. Metallic umbilical piercing. LYMPH NODES: No lymphadenopathy. VASCULAR: No aneurysm or dissection, abdominal aorta. PELVIC VISCERA: There is a radiopaque ring at the region of the uterine cervix/distal vagina likely contraceptive diaphragm device. OSSEOUS STRUCTURES: There is a partially sclerotic superior endplate compression deformity resulting in 30% volume loss and 4 mm retropulsion upon central canal at T12 vertebral body. S-shaped curvature of the thoracolumbar spine. Multilevel thoracolumbar spondylosis more conspicuous at L5-S1 resulting in central spinal canal stenosis with questionable disc herniation. There is fatty atrophy of the lower lumbar muscles at L5-S1 level. CT/CT abdomen pelvis w IV con IMPRESSION: Acute inflammatory bowel disease/enterocolitis should be considered in the correct clinical settings. Crohn's disease cannot be excluded. Subacute fracture resulting in 30% volume loss at T12 vertebra. Discussed with the emergency physician Dr. Tori Fernandez at 2:12 PM Fleischner guidelines were followed. Electronically signed by: Henrik Rosales MD 10/08/2024 02:23 PM [facility] [place] Dictated By: Henrik Marquez MD Signed By: Electronically signed by Henrik Whitmore MD 10/08/24 1423 Radiology Impression Discussion of test interpretation with radiology: I have reviewed the radiologist's reading. Medications Administered Discontinued Medications Generic Name Dose Route Start Last Admin Trade Name Freq PRN Reason Stop Dose Admin Ceftriaxone Sodium 1 gm 10/08/24 10:47 10/08/24 11:02 Ceftriaxone Sodium 1 Gm Vial IVPUSH 10/08/24 10:48 1 gm ONCE ONE Administration Diphenhydramine HCl 25 mg 10/08/24 10:47 10/08/24 11:12 Diphenhydramine Hcl 50 Mg/Ml Vial IVPUSH 10/08/24 10:48 25 mg ONCE ONE Administration Lactated Ringer's 1,000 mls @ 999 mls/hr 10/08/24 10:47 10/08/24 13:09 Lr IV 10/08/24 11:47 Infused .Q1H1M ONE Infusion Lactated Ringer's 1,000 mls @ 999 mls/hr 10/08/24 10:48 10/08/24 13:09 Lr IV 10/08/24 11:48 Infused .Q1H1M ONE Infusion Iohexol 100 ml 10/08/24 13:55 10/08/24 13:56 Iohexol 350 Mg/Ml 100 Ml Infus..Btl IV 10/08/24 13:56 85 ml ONCE ONE Administration Metoclopramide HCl 10 mg 10/08/24 10:47 10/08/24 11:17 Metoclopramide Hcl 10 Mg/2 Ml Vial IVPUSH 10/08/24 10:48 10 mg ONCE ONE Administration Morphine Sulfate 4 mg 10/08/24 10:47 10/08/24 11:19 Morphine Sulfate 4 Mg/Ml Cartridge IVPUSH 10/08/24 10:48 4 mg ONCE ONE Administration Protocol Ondansetron HCl 4 mg 10/08/24 09:14 10/08/24 09:16 Ondansetron Odt 4 Mg Tab.Biankadis TRANSLINGU 10/08/24 09:15 4 mg ONCE ONE Administration Critical Care Time Critical Care Time Critical Care Time: Yes Total Critical Care Time: 38 Attestation: I spent 38 minutes of Critical Care Time with this patient. This does not include time spent on separately reported billable procedures. Discharge Plan Discharge Clinical Impression: Bandemia, Nausea & vomiting, Colitis Patient Disposition: Admitted As Inpatient Prescriptions: No Action cyclobenzaprine 10 mg tablet 10 mg PO TID PRN (Reason: muscle spasm) Qty: 15 0RF etonogestrel-ethinyl estradiol 0.12-0.015 mg/24 hr ring 1 vag ring VAGINAL Q3W cetirizine [Zyrtec] 10 mg Tablet 10 mg PO DAILY Print Language: Trinidadian
[2024-10-08] MEDS: cefTRIAXone sodium 1 GM VIAL IVPUSH (11:02)
[2024-10-08] MEDS: Lactated Ringers 1,000 ML 999 ML IV ×2 (11:12→11:22)
[2024-10-08] MEDS: diphenhydrAMINE HCL 50 MG/ML VIAL 25 MG IVPUSH (11:12)
[2024-10-08] MEDS: Metoclopramide HCl 10 MG/2 ML VIAL IVPUSH (11:17)
[2024-10-08] MEDS: Morphine Sulfate 4 MG/ML CARTRIDGE IVPUSH (11:19)
[2024-10-08 11:31] VITALS: BP 120/76; PULSE 116; RESP 15; TEMP 36.7; O2SAT 100
[2024-10-08 11:36] LABS: Lactic Acid 2.5 mmol/L (0.5-2.0)
[2024-10-08 13:08] LABS: Reflex Lactate? Lactic Acid Added
[2024-10-08 13:12] VITALS: BP 145/95; PULSE 107; RESP 18; O2SAT 100
[2024-10-08 13:39] LABS: HCG Quantitative < 2 mIU/mL
[2024-10-08] MEDS: iohexoL 350 MG/ML 100 ML INFUS..BTL IV (13:56)
[2024-10-08 14:00] VITALS: BP 120/84; PULSE 111; RESP 15; TEMP 36.6; O2SAT 99
[2024-10-08 14:09] LABS: ~Lactic Acid-LAB USE ONLY 2.7 mmol/L (0.5-2.0)
--- NOTE | 2024-10-08 14:52 | PHA.MEDREC ---
Addendum entered by Ginna Roblero [facility] 10/08/24 15:13: This [facility] looked at PDMP, last claim for morphine was 08/08/2023. Decided to omit from med list. Otherwise list is reviewed Original Note: Pharmacy Consult ? Medication Reconciliation Pharmacy has completed the medication reconciliation. Spoke with patient and she confirmed her medications. She states she is still using the Cyclobenzaprine 10mg tab as needed for her back spasms and states she took one tablet last 3 days ago. She also confirmed her Etonogestrel-Ethinyl Estradiol 0.12-0.015 mg/24 hr Ring and states she changed it in the last 2 weeks. She states and confirmed she still has Morphine 15mg tabs at home as needed for her back pain but states she has not used it in about a year. She states she takes a Zyrtec 10mg tablet once daily and last took that yesterday.
--- NOTE | 2024-10-08 15:24 | P.HPHOSP_ITS ---
History of Present Illness Date of Service: 10/08/24 Attending physician on admission: Victoriano Jaimes Chief Complaint: N/V/D, abdominal pain This is a 33-year-old female who presents to the emergency department with nausea, vomiting, diarrhea and left side abdominal pain. Her symptoms began suddenly this morning with numerous episodes of nonbloody emesis. Her abdominal pain is described as sharp without radiation. She denies any blood in her stool. She denies any fever or chills. She denies any recent sick contacts. In the emergency department she was afebrile, tachycardic with heart rate up to 129. Lab work without leukocytosis, 8% bands. Lactic acid initially 2.5, increased to 2.7. CT scan of the abdomen and pelvis revealed acute inflammatory bowel disease/enterocolitis. Crohn's disease can not be excluded. She denies any personal or family history of inflammatory bowel disease. Has had no previous episodes of colitis. She received 2 L of IV fluid, IV antibiotics, IV pain medication and antiemetics. Due to persistent abdominal pain and nausea the decision was made to admit her to the hospital for further management. Review of Systems 2 Review of Systems: Yes all other systems are reviewed and are negative Constitutional: Constitutional: Denies chills and Denies fever(s) Cardiovascular: Cardiovascular: Denies chest pain Respiratory: Respiratory: Denies cough Gastrointestinal: Gastrointestinal: Reports abdominal pain, Reports diarrhea, Reports nausea and Reports vomiting [facility] Medical History (Updated 10/08/24 @ 15:32 by PEDRO Calvert) Von Willebrand disease Functional capacity: independent ambulation Social History Alcohol intake: current Smoked in Last 30 Days: No Advance Directives: No Advance Directives Information Provided: No Patient : No Meds Allergies Allergy/AdvReac Type Severity Reaction Status Date / Time NSAIDS (Non-Steroidal AdvReac Unknown Verified 10/08/24 07:28 Anti-Inflamma Home Medications ?Medication ?Instructions ?Recorded ?Confirmed ?Last Taken ?Type cetirizine 10 mg tablet (Zyrtec) 10 mg PO DAILY 10/08/24 10/08/24 10/07/24 History etonogestrel 0.12 mg-ethinyl 1 vag ring vaginal Q3W 10/08/24 10/08/24 2 Weeks Ago History estradiol 0.015 mg/24 hr vaginal ~09/24/24 ring Physical Exam 2 Vital Signs and Narrative: Vital Signs: Last Vital Signs Temp 98 F 10/08/24 14:00 Pulse 111 H 10/08/24 14:00 Resp 15 10/08/24 14:00 BP 120/84 10/08/24 14:00 Pulse Ox 99 10/08/24 14:00 O2 Del Method Room Air 10/08/24 14:00 BMI result Body Mass Index 21.3 Const: General: comfortable, alert and awake Nutritional Appearance: a verage body habitus Orientation/consciousness: patient oriented x3 Resp: Effort & Inspection: normal respiratory effort, able to speak in complete sentences, no respiratory distress and no use of accessory muscles A uscultation: clear to auscultation bilaterally Cardio: Rate: tachycardic GI: Inspection: No distended Palpation (GI): Soft to palpation, no guarding and not rigid Neuro: General: patient oriented x3, moves all extremities and CN's II-XI intact bilaterally Extrem: General: Yes no pedal edema Results Labs 10/08/24 08:21 10/08/24 08:21 Labs: Laboratory Results - last 24 hr 10/08/24 10/08/24 10/08/24 08:21 11:01 13:23 MCV 90.2 MCH 31.8 MCHC 35.3 H RDW 11.7 Plt Count 268 MPV 9.6 Immature Gran % (Auto) Cancelled Neut % (Auto) Cancelled Lymph % (Auto) Cancelled [place] % (Auto) Cancelled Eos % (Auto) Cancelled Baso % (Auto) Cancelled Lymph # (Auto) Cancelled [place]ier # (Auto) Cancelled Eos # (Auto) Cancelled Baso # (Auto) Cancelled Abs Immat Gran (auto) Cancelled Absolute Neuts (auto) Cancelled Absolute Nucleated RBC 0.000 Nucleated RBC % (auto) 0.0 Neutrophils % (Manual) 82 H Band Neutrophils % 8 H Lymphocytes % (Manual) 8 L Monocytes % (Manual) 1 L Metamyelocytes % 1 Abs Neuts (Manual) 10.2 H Lymphocytes # (Manual) 0.9 L Monocytes # (Manual) 0.1 Metamyelocytes # 0.1 Platelet Estimate NORMAL Plt Morphology Comment NORMAL RBC Morphology NORMAL Smear Tech's Comments MANUAL DIFF Anion Gap 14 Estim Creat Clear Calc 125.8 Estimated GFR > 60 Random Glucose 120 H Lactic Acid 2.5 H* Lactic Acid F/U @ 2Hr 2.7 H* Calcium 8.7 D Total Bilirubin 0.3 Direct Bilirubin 0.1 AST 16 ALT 9 Alkaline Phosphatase 51 Total Protein 7.5 Albumin 4.0 Lipase 31 Beta HCG, Quant < 2 Influenza Type A (PCR) NEGATIVE Influenza Type B (PCR) NEGATIVE RSV RNA Qual (PCR) NEGATIVE SARS-CoV-2 RNA (RT-PCR) NEGATIVE Imaging Radiologist's Impressions: Impressions Abdomen/Pelvis CT 10/08/24 13:49 IMPRESSION: Acute inflammatory bowel disease/enterocolitis should be considered in the correct clinical settings. Crohn's disease cannot be excluded. Subacute fracture resulting in 30% volume loss at T12 vertebra. Discussed with the emergency physician Dr. Tori Fernandez at 2:12 PM Fleischner guidelines were followed. Electronically signed by: Henrik Rosales MD 10/08/2024 02:23 PM [facility] [place] Assessment and Plan (1) Nausea & vomiting: Status: Acute Plan This is a 33-year-old female with history of von Willebrand's disease who presents to the emergency department with sudden onset of nausea, vomiting, diarrhea with associated left-sided abdominal pain found to have enterocolitis on imaging Enterocolitis no evidence of sepsis possible viral - will check GI penal cover with empiric abx per imaging can't rule out Crohn's dz - no personal h/o IBD- if no improvement in symptoms, can consider GI consultation supportive care for pain and nausea acute lactic acidosis likely due to dehydration not due to sepsis resolved with IVF dvt ppx - low risk; mechanical devices, early ambulation patient will likely require 2 midnight stay for management of enterocolitis requiring IV abx and minimal po intake Quality Stroke Does the patient have a stroke diagnosis?: No VTE Prior VTE?: No VTE Risk Level:: Medical - low VTE Device Contraindication: N/A - Device Ordered VTE Drug Contraindication: Treatment Not Indicated
[2024-10-08 15:27] LABS: Reflex Lactate? 2 Y
[2024-10-08] MEDS: metroNIDAZOLE/NS 500 MG/100 ML PIGGYBACK 100 MG IV ×2 (16:21→23:28)
[2024-10-08] MEDS: Acetaminophen 325 MG TABLET 650 MG PO (16:29)
[2024-10-08] MEDS: Lactated Ringers 1,000 ML 100 ML IVCONT (17:37)
[2024-10-08] MEDS: Morphine Sulfate 4 MG/ML CARTRIDGE 2 MG IVPUSH (22:22)
[2024-10-08 22:33] VITALS: BP 121/79; PULSE 100; RESP 18; TEMP 36.7; O2SAT 96
[2024-10-08] MEDS: ondansetron HCL 4 MG/2 ML VIAL IVPUSH (22:46)
[2024-10-09] MEDS: Lactated Ringers 1,000 ML 100 ML IVCONT (02:18)
[2024-10-09 06:22] VITALS: BP 117/65; PULSE 88; RESP 16; TEMP 36.9; O2SAT 97
[2024-10-09] MEDS: Acetaminophen 325 MG TABLET 650 MG PO (06:36)
[2024-10-09 06:50] LABS: Anion Gap 9 (12-20); Blood Urea Nitrogen 5 mg/dL (9-16); Calcium 7.8 mg/dL (8.4-10.2); Carbon Dioxide 23 mmol/L (22-29); Chloride 109 mmol/L (96-108); Creatinine Clr Calc Pharmacy 139.1; Estimated Glomerular Filt Rate > 60; Glucose Random 92 mg/dL (60-115); Potassium 3.1 mmol/L (3.3-5.1); Sodium 138 mmol/L (135-145)
[2024-10-09] MEDS: metroNIDAZOLE/NS 500 MG/100 ML PIGGYBACK 100 MG IV (09:10)
--- NOTE | 2024-10-09 09:54 | HO.PM.IMPN ---
Subjective Subjective Date of Service: 10/09/24 Physical Exam Vital Signs: Vital Signs: Last Vital Signs Temp 98.5 F 10/09/24 06:22 Pulse 88 10/09/24 06:22 Resp 16 10/09/24 06:22 BP 117/65 10/09/24 06:22 Pulse Ox 97 10/09/24 06:22 O2 Del Method Room Air 10/09/24 06:22 BMI result Body Mass Index 21.3 Objective Data Active Medications Acetaminophen (Acetaminophen 325 Mg Tablet) 650 mg PO Q6H PRN PRN Reason: Pain, Mild 1-3,fever,headache Last Admin: 10/09/24 06:36 Dose: 650 mg Documented By: BATSHEVA Calcium Carbonate (Calcium Carbonate 750 Mg Tab.Chew) 750 mg PO Q4H PRN PRN Reason: Heartburn Ceftriaxone Sodium (Ceftriaxone Sodium 1 Gm Vial) 1 gm IVPUSH Q24H [facility] Lactated Ringer's (Lr) 1,000 mls @ 100 mls/hr IVCONT .Q10H [facility] Last Admin: 10/09/24 02:18 Dose: 100 mls/hr Documented By: BATSHEVA Metronidazole (Flagyl) 500 mg in 100 mls @ 100 mls/hr IV Q8H [facility] Last Admin: 10/09/24 09:10 Dose: 100 mls/hr Documented By: PAKO Magnesium Hydroxide (Milk Of Magnesia 30 Ml Oral.Susp) 30 ml PO DAILY PRN PRN Reason: Constipation Melatonin (Melatonin 3 Mg Tablet) 6 mg PO BEDTIME PRN PRN Reason: Insomnia Morphine Sulfate (Morphine Sulfate 4 Mg/Ml Cartridge) 2 mg IVPUSH Q4H PRN; Protocol PRN Reason: Pain, Severe (Pain Scale 7-10) Last Admin: 10/08/24 22:22 Dose: 2 mg Documented By: BATSHEVA Ondansetron HCl (Ondansetron Hcl 4 Mg/2 Ml Vial) 4 mg IVPUSH Q6H PRN PRN Reason: Nausea and Vomiting Last Admin: 10/08/24 22:46 Dose: 4 mg Documented By: BATSHEVA Sodium Chloride (0.9 % Sodium Chloride Flush 3 Ml Syringe) 3 ml IVFLUSH QSHIFT [facility] Last Admin: 10/09/24 09:06 Dose: Not Given Documented By: PAKO Non-Admin Reason: IV Running Labs 10/08/24 08:21 10/09/24 06:21 Labs: Laboratory Results - last 24 hr 10/08/24 10/08/24 10/08/24 08:21 11:01 13:23 MCV 90.2 MCH 31.8 MCHC 35.3 H RDW 11.7 Plt Count 268 MPV 9.6 Absolute Nucleated RBC 0.000 Nucleated RBC % (auto) 0.0 Neutrophils % (Manual) 82 H Band Neutrophils % 8 H Lymphocytes % (Manual) 8 L Monocytes % (Manual) 1 L Metamyelocytes % 1 Abs Neuts (Manual) 10.2 H Lymphocytes # (Manual) 0.9 L Monocytes # (Manual) 0.1 Metamyelocytes # 0.1 Platelet Estimate NORMAL Plt Morphology Comment NORMAL RBC Morphology NORMAL Smear Tech's Comments MANUAL DIFF Anion Gap Estim Creat Clear Calc Estimated GFR Random Glucose Lactic Acid 2.5 H* Lactic Acid F/U @ 2Hr 2.7 H* Lactic Acid F/U @ 4Hr Calcium Beta HCG, Quant < 2 10/08/24 10/09/24 16:16 06:21 MCV MCH MCHC RDW Plt Count MPV Absolute Nucleated RBC Nucleated RBC % (auto) Neutrophils % (Manual) Band Neutrophils % Lymphocytes % (Manual) Monocytes % (Manual) Metamyelocytes % Abs Neuts (Manual) Lymphocytes # (Manual) Monocytes # (Manual) Metamyelocytes # Platelet Estimate Plt Morphology Comment RBC Morphology Smear Tech's Comments Anion Gap 9 L Estim Creat Clear Calc 139.1 Estimated GFR > 60 Random Glucose 92 Lactic Acid Lactic Acid F/U @ 2Hr Lactic Acid F/U @ 4Hr 2.0 Calcium 7.8 L D Beta HCG, Quant Assessment and Plan Plan 33-year-old female with history of von Willebrand's disease who presents to the emergency department with sudden onset of nausea, vomiting, diarrhea with associated left-sided abdominal pain found to have enterocolitis on imaging Enterocolitis no evidence of sepsis possible viral - GI panel pending cover with empiric abx per imaging can't rule out Crohn's dz - no personal h/o IBD- if no improvement in symptoms, can consider GI consultation supportive care for pain and nausea Hyperkalemia secondary to dehydration acute lactic acidosis likely due to dehydration not due to sepsis resolved with IVF dvt ppx - low risk; mechanical devices, early ambulation patient will likely require 2 midnight stay for management of enterocolitis requiring IV abx and minimal po intake Quality Stroke Does the patient have a stroke diagnosis?: No VTE Prior VTE?: No VTE Risk Level:: Medical - low VTE Device Contraindication: N/A - Device Ordered VTE Drug Contraindication: Treatment Not Indicated
[2024-10-09] MEDS: Potassium Chloride ER 20 MEQ TAB.ER.PRT 40 MEQ PO (10:42)
--- NOTE | 2024-10-09 11:44 | PM.DS ---
DS: Providers Provider Date of Service: 10/09/24 Date of admission: 10/08/24 15:19 Date of discharge: 10/09/24 Primary care physician: Katja Vasquez MD DS: Diagnosis Discharge Diagnosis (1) Nausea & vomiting: Status: Acute DS: Summary Hospital Course Hospital Course: History and physical as per admitting provider. This is a 33-year-old female who presents to the emergency department with nausea, vomiting, diarrhea and left side abdominal pain. Her symptoms began suddenly this morning with numerous episodes of nonbloody emesis. Her abdominal pain is described as sharp without radiation. She denies any blood in her stool. She denies any fever or chills. She denies any recent sick contacts. In the emergency department she was afebrile, tachycardic with heart rate up to 129. Lab work without leukocytosis, 8% bands. Lactic acid initially 2.5, increased to 2.7. CT scan of the abdomen and pelvis revealed acute inflammatory bowel disease/enterocolitis. Crohn's disease can not be excluded. She denies any personal or family history of inflammatory bowel disease. Has had no previous episodes of colitis. She received 2 L of IV fluid, IV antibiotics, IV pain medication and antiemetics. Due to persistent abdominal pain and nausea the decision was made to admit her to the hospital for further management. Enterocolitis no evidence of sepsis possible viral covered with empiric abx per imaging can't rule out Crohn's dz - no personal h/o IBD- if no improvement in symptoms, can consider GI consultation outpatient Hyperkalemia . secondary to dehydration. Repleted acute lactic acidosis likely due to dehydration not due to sepsis resolved with IVF Time Attestation Discharge Coordination Time (in mins): 35 Quality: Safe Use of Opioids Does Pt have an Active Cancer Diagnosis on the Problem List?: No Quality: Stroke Does the patient have a stroke diagnosis?: No Physical Exam Vital Signs: Vital Signs: Last Vital Signs Temp 98.5 F 10/09/24 06:22 Pulse 88 10/09/24 06:22 Resp 16 10/09/24 06:22 BP 117/65 10/09/24 06:22 Pulse Ox 97 10/09/24 06:22 O2 Del Method Room Air 10/09/24 06:22 BMI result Body Mass Index 21.3 Appearing in no acute distress head is normocephalic atraumatic eyes pupils are PERRLA sclera is anicteric mouth throat mucous membranes are intact and moist neck is supple no lymphadenopathy, no JVD noted lung sounds are clear to auscultation heart regular rate rhythm, clear S1, S2 positive bowel sounds, abdomen is soft, nontender neuro patient is alert x3, no focal deficits DS: Data Data Completed and Pending Labs on day of discharge: Laboratory Results - last 24 hr 10/08/24 10/08/24 10/08/24 08:21 13:23 16:16 Sodium Potassium Chloride Carbon Dioxide Anion Gap BUN Creatinine Estim Creat Clear Calc Estimated GFR Random Glucose Lactic Acid F/U @ 2Hr 2.7 H* Lactic Acid F/U @ 4Hr 2.0 Calcium Beta HCG, Quant < 2 10/09/24 06:21 Sodium 138 Potassium 3.1 L Chloride 109 H Carbon Dioxide 23 Anion Gap 9 L BUN 5 L Creatinine 0.57 Estim Creat Clear Calc 139.1 Estimated GFR > 60 Random Glucose 92 Lactic Acid F/U @ 2Hr Lactic Acid F/U @ 4Hr Calcium 7.8 L D Beta HCG, Quant Discharge Plan Discharge Anticipated Discharge Date/Time: 10/09/24 11:42 Patient Disposition: Home, Self-Care Discharge Diagnosis: Enteritis hypokalemia Referrals: Kataj Vasquez MD [Primary Care Provider] - 1 Week Discharge Medications: New potassium chloride 20 mEq tablet extended release 20 meq PO BID Qty: 3 0RF Rx Instructions: Take one potassium pill this evening, then 2 tomorrow Continued cyclobenzaprine 10 mg tablet 10 mg PO TID PRN (Reason: muscle spasm) Qty: 15 0RF etonogestrel-ethinyl estradiol 0.12-0.015 mg/24 hr ring 1 vag ring VAGINAL Q3W cetirizine [Zyrtec] 10 mg Tablet 10 mg PO DAILY Discharge Orders: Discharge Order (Routine); Ordered 10/09/24 Ordered By: Joyce Ramirez Diet: Advance to usual diet Activity on Discharge: As tolerated Stand Alone Forms: Patient Portal Discharge page, Work/School Release Print Language: Kazakh Care Plan Goals: [place] foods for the next few days, drink plenty of fluids Health Concerns: Enteritis Hypokalemia Plan of Treatment: Follow-up with primary care provider as needed Take all medications as prescribed Assessment: See discharge summary
[2024-10-09 12:02] VITALS: BP 117/65; PULSE 88; RESP 16; TEMP 36.9; O2SAT 97
--- NOTE | 2024-10-09 12:38 | MHC.CM.PN ---
PT DISCHARGED PRIOR TO BEING SEEN BY CM PT FULLY INDEPENDENT AND ARRANGED HER OWN TRANSPORT
== END 2024-10-09 12:00 | disposition home or self-care (01) | DRG 249 ==
LOC: HO.ED 15:27 → HO.EDOVER 15:35 → HO.S3 10-09 07:57 → HO.EDOVER 10-09 11:54
PROVIDERS: Emergency Medicine; Physician Assistant Medical; Admitting Provider Physician Assistant Medical; Emergency Provider Emergency Medicine; PCP Family Medicine; Visit Provider Nurse Practitioner Acute Care
DX: A08.4 Viral intestinal infection, unspecified (principal); D68.00 Von Willebrand disease, unspecified; E87.21 Acute metabolic acidosis; E86.0 Dehydration; K50.90 Crohn's disease, unspecified, without complications; Z20.822 Contact with and (suspected) exposure to COVID-19; Z79.899 Other long term (current) drug therapy
CPT/HCPCS: 0241U; 36415; 74177; 80048; 80053; 82248; 83605; 83690; 84702; 85007; 85025; 85027; 87040; 93005; 99221; 99285; J0696; J1200; J1836; J2270; J2405; J2765; J7120; Q9967

== ENCOUNTER → 2024-10-08 07:28 | Outpatient (BNV) | payer OTHER, SELFPAY | PROVIDERS: Admitting Provider Physician Assistant Medical; Emergency Provider Emergency Medicine; PCP Family Medicine; Visit Provider Internal Medicine Cardiovascular Disease | DX: R00.0 Tachycardia, unspecified (principal) | CPT/HCPCS: 93010 ==

== ENCOUNTER → 2024-10-08 10:48 | Outpatient (BNV) | payer OTHER, SELFPAY | PROVIDERS: Emergency Provider Emergency Medicine; PCP Family Medicine; Visit Provider Radiology Diagnostic Radiology | DX: S22.080A Wedge compression fracture of T11-T12 vertebra, initial encounter for closed fracture (principal); K52.9 Noninfective gastroenteritis and colitis, unspecified | CPT/HCPCS: 74177 ==

== ENCOUNTER → 2024-10-08 15:19 | Outpatient (BNV) | payer OTHER, SELFPAY | PROVIDERS: Admitting Provider Physician Assistant Medical; Emergency Provider Emergency Medicine; PCP Family Medicine; Visit Provider Physician Assistant Medical | DX: R11.2 Nausea with vomiting, unspecified (principal) | CPT/HCPCS: 99222 ==